=== PATIENT | male | born 1995 | race Caucasian/White ===

== ENCOUNTER 2017-09-27 08:47 | Inpatient (IN) ==
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
[2017-09-27] MEDS ORDERED: Morphine Inj 4 MG/ML Vial IV.PUSH PRN (10:08)
[2017-09-27] MEDS ORDERED: Docusate Sodium 100 MG Capsule PO SCH (10:15)
[2017-09-27] MEDS ORDERED: Pantoprazole Inj 40 MG Vial IV.PUSH SCH (11:00)
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
[2017-09-27] MEDS ORDERED: Glycopyrrolate Inj 1 MG/5 ML Syringe IV.PUSH ONE (12:00)
[2017-09-27] MEDS ORDERED: Neostigmine Inj 5 MG/5 ML Syringe IV.PUSH ONE (12:00)
[2017-09-27] MEDS ORDERED: Lidocaine PF 1% Inj 5 ML Syringe INFILTRATN ONE (12:00)
[2017-09-27] MEDS: Morphine Inj 4 MG/ML Vial IV.PUSH PRN ×2 (12:26→15:48)
[2017-09-27] MEDS ORDERED: Chlorhexidine Gluconate 2% 1 Pack (2 Cloths) TOPICAL SCH (13:30)
[2017-09-27] MEDS ORDERED: Metoprolol Tartrate 25 MG Tablet PO SCH (13:30)
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
[2017-09-27] MEDS ORDERED: Sodium Chlor 0.9% Inj 500 ML IV.SIG SCH (14:00)
[2017-09-27] MEDS ORDERED: HYDROmorphone PF Inj 2 MG/ML Vial ONE (20:12)
--- NOTE | 2017-09-27 20:53 | P.OP ---
- Preoperative Diagnosis (1) Left patella fracture (2) Bimalleolar fracture of left ankle - Postoperative Diagnosis (1) Bimalleolar fracture of left ankle (2) Left patella fracture Date of procedure: 09/27/17 Procedure: Left ankle open reduction and internal fixation of bimalleolar ankle fracture. Left knee open reduction and internal fixation of comminuted patella fracture. Anesthesia: GETA Surgeon: Sudhakar Vizcarra MD Tank [employer] Gauger: PETER Blake The surgical procedure was assisted by my Advanced Registered Nurse Practitioner. My LAPEL BASTER presence was necessary throughout this case for the manipulation and positioning of the surgical extremity. My LAPEL BASTER was assisting me throughout the duration of this procedure. The skill set of an Advance Registered Nurse Practitioner was medically necessary to complete this procedure. During the surgical case, the surgical technology instructor was working at the back table and the Advance Registered Nurse Practitioner was directly assisting me. Operation and Findings: Tourniquet time: 0 minutes at 250 mmHg of pressure Estimated blood loss: 75 cc The patient received intravenous vancomycin and Ancef. After the appropriate anesthesia was administered, the patient's leg was prepped and draped in the usual sterile fashion. We made a standard incision on the anterior aspect of the knee. We identified a nondisplaced comminuted patella fracture. We evacuated the hematoma. We verified anatomic alignment both on palpation of the articular surface and also on fluoroscopy. We then placed 2 wires from distal to proximal. We used these wires to place 2 individual 4.0 Synthes cannulated stainless steel partially-threaded screws. Both screws had very good purchase. We then placed 18-gauge wire through the base of the first screw which was then crossed and brought down to the bottom of the second screw. We threaded the wire through the second screw brining the wire to the proximal aspect of the knee. We then create a crisscross pattern. We twisted and tightened both the medial and lateral sides of the wire in usual fashion with excellent compression. We considered placing a medial to lateral screw in the proximal aspect of the patella as there was a vertical type of split in this area. However we felt that the use of the tension band did stabilize this region and therefore decided not to place further fixation so as not to interfere with the previous screws have been placed. We took final fluoroscopic images. Hemostasis was achieved and the knee was thoroughly irrigated. Skin was closed with 2-0 Vicryl followed by pb. We then turned our attention to the ankle using separate incisions. We made a standard incision over the lateral aspect of the ankle. We then dissected through the deep fascia down to the fracture site. The edges of the fracture were identified. The lateral malleolus fracture was anatomically reduced by placing pressure from the lateral side. The fracture was anatomically reduced with a reduction clamp, verified both visually and via fluoroscopy. We then applied a pre-contoured Synthes lateral malleolus plate over the fracture. We initially secured the plate using a non-locking screw in the oblong screw hole. This gave nice compression of the plate to the bone. We then secured the fracture with multiple distal and proximal locking screws. We made an incision on the medial aspect of the ankle and placed one central guidewires up the medial malleolus. The medial malleolus remained anatomic during this procedure. We measured the appropriate length for the screw. One Synthes 4.0 stainless steel partially threaded, long thread, cannulated screws were placed. The fracture remained in good position. We decided to use only one screw as this screw was in the central portion of the fracture and had good purchase. We took final fluoroscopic imaging of the ankle, including an AP, lateral, and mortise view. The fracture and the mortise were anatomic. We found no intra- articular penetration of the screws. The patient had full range of motion of the ankle with no crepitus. No instability was noted. We irrigated the incisions thoroughly. We then closed the deep fascia completely over the plate with 0 Vicryl. Skin was closed on both sides with 2-0 Vicryl followed by 3-0 nylon. The leg was dressed and a splint was applied. The postoperative plan is for nonweightbearing to the extremity also with application of a a canvas knee splint. We may be able to start early range of motion for the knee and the ankle depending on clinical course. We will place the patient on aspirin for DVT prophylaxis.
[2017-09-27] MEDS ORDERED: Post-op Orders (for Pharmacy) OTHER STA (20:55)
[2017-09-27] MEDS ORDERED: Bisacodyl 10 MG Supp RECTAL PRN (20:55)
[2017-09-27] MEDS ORDERED: Aluminum/Magnesium/Simethacone Susp 30 ML UDC PO PRN (20:55)
[2017-09-27] MEDS ORDERED: Zolpidem Tartrate 5 MG Tablet PO PRN (20:55)
[2017-09-27] MEDS ORDERED: fentaNYL Citrate Inj 100 MCG/2 ML Ampul ONE (21:42)
[2017-09-27] MEDS ORDERED: *morphine SULFATE 4 MG/ML PERIprocedure ONLY ONE ×2 (22:03→22:12)
--- NOTE | 2017-09-27 22:06 | XR ---
EXAM DATE: 09/27/2017 9:41 PM EDT AGE/SEX: 22 years / Male INDICATIONS: Open reduction. CLINICAL DATA: This is the patient's subsequent encounter. Patient reports that signs and symptoms h ave been present for 2 days and indicates a pain score of Nonresponsive. MEDICAL/SURGICAL HISTORY: None. None. COMPARISON: No prior exams available for comparison. FINDINGS: 2 intraoperative spot images of the knee. 2 vertically oriented screws across patellar fracture along with cerclage wires. CONCLUSION: Surgical hardware in the patella. Electronically signed by: Kulwant Garcia MD 09/27/2017 10:05 PM EDT
--- NOTE | 2017-09-27 22:06 | XR ---
EXAM DATE: 09/27/2017 9:42 PM EDT AGE/SEX: 22 years / Male INDICATIONS: Open reduction left ankle. CLINICAL DATA: This is the patient's subsequent encounter. Patient reports that signs and symptoms h ave been present for 2 days and indicates a pain score of Nonresponsive. MEDICAL/SURGICAL HISTORY: None. None. COMPARISON: [facility] [place] COMPLETE LEFT MIN 3V, 09/27/2017. . FINDINGS: 3 intraoperative spot images of the left ankle. Lateral internal fixation plate and multiple transfix ing screws in the distal fibula. Oblique screw through the medial malleolus. CONCLUSION: Surgical hardware in the distal tibia and fibula. Electronically signed by: Kulwant Garcia MD 09/27/2017 10:04 PM EDT
[2017-09-27] MEDS: Senna/Docusate Sodium 8.6/50 MG Tablet PO SCH (23:03)
[2017-09-27] MEDS: Multivitamin/Minerals Therapeutic Tablet PO SCH (23:04)
[2017-09-28] MEDS: Morphine Inj 4 MG/ML Vial IV.PUSH PRN ×3 (04:10→12:50)
[2017-09-28 07:02] LABS: Baso % (Auto) 0.2 % (0.0-2.0); Hematocrit 38.4 % (39.0-51.0); Lymph # (Auto) 1.5 th/mm3 (1.0-4.8); Lymph % (Auto) 12.7 % (9.0-44.0); Mean Corpuscular HGB Conc 33.8 % (32.0-36.0); Mean Corpuscular Hemoglobin 29.7 pg (27.0-34.0); Mean Corpuscular Volume 87.7 fL (80.0-100.0); Mean Platelet Volume 8.1 fL (7.0-11.0); Mono # (Auto) 1.4 th/mm3 (0.0-0.9); Mono % (Auto) 11.5 % (0.0-8.0); Neut # (Auto) 9.1 th/mm3 (1.8-7.7); Neut % (Auto) 75.6 % (16.0-70.0); Platelet Count 279 th/mm3 (150-450); Red Blood Count 4.38 mil/mm3 (4.50-5.90); Red Cell Distribution Width 14.4 % (11.6-17.2); White Blood Count 12.1 th/mm3 (4.0-11.0)
[2017-09-28 07:20] LABS: Anion Gap 5 meq/L (5-15); Blood Urea Nitrogen 9 mg/dL (7-18); Carbon Dioxide 27.6 meq/L (21.0-32.0); Chloride 106 meq/L (98-107); Glomerular Filtration Rate Greater Than 89 mL/min (>89); Glucose,Random 143 mg/dL (74-106); Potassium 4.2 meq/L (3.5-5.1); Sodium 139 meq/L (136-145)
[2017-09-28] MEDS: Multivitamin/Minerals Therapeutic Tablet PO SCH (08:57)
[2017-09-28] MEDS: Enoxaparin Inj 40 MG/0.4 ML Syringe SQ SCH (08:57)
[2017-09-28] MEDS: Senna/Docusate Sodium 8.6/50 MG Tablet PO SCH ×2 (08:57→22:19)
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
[2017-09-28] MEDS ORDERED: Ketorolac Inj 30 MG/ML (IVP) Vial IV.PUSH PRN (17:00)
[2017-09-29] MEDS: Ibuprofen 400 MG Tablet PO SCH ×2 (02:43→11:18)
[2017-09-29 03:47] LABS: Hematocrit 34.7 % (39.0-51.0); Hemoglobin 12.1 gm/dL (13.0-17.0)
[2017-09-29] MEDS: diazePAM 2 MG Tablet PO SCH ×3 (04:12→20:46)
[2017-09-29] MEDS: Multivitamin/Minerals Therapeutic Tablet PO SCH ×3 (04:16→20:47)
--- NOTE | 2017-09-29 07:58 | P.DCO ---
- Physical Therapy Order: Evaluate and treat, Improve ambulation - Home Health Nursing Order: Medical education, Signs/symptoms of disease process, Medication education-adverse effect, Nursing assessment with vital signs - Certification I have seen patient Jersey Edmondson on 09/29/17. My clinical findings support the need for the requested home health care services because: Limited mobility due to disease progression, Deconditioned with increased weakness, Limited ability to care for self, High risk of falls, Infection with risk of complications I certify that my clinical findings support that this patient is homebound because: Post-op weakness, Unsteady gait/balance, Unsafe to leave home unassisted, Non- ambulatory: confined to bed or chair, Unable to use public transportation
[2017-09-29] MEDS: Senna/Docusate Sodium 8.6/50 MG Tablet PO SCH ×2 (08:36→20:48)
[2017-09-29] MEDS: Enoxaparin Inj 40 MG/0.4 ML Syringe SQ SCH (08:36)
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
[2017-09-30] MEDS: Enoxaparin Inj 40 MG/0.4 ML Syringe SQ SCH (08:53)
[2017-09-30] MEDS: Senna/Docusate Sodium 8.6/50 MG Tablet PO SCH (08:53)
[2017-09-30] MEDS: Multivitamin/Minerals Therapeutic Tablet PO SCH (08:54)
[2017-09-30] MEDS: Ibuprofen 400 MG Tablet PO SCH (11:50)
[2017-09-30] MEDS: diazePAM 2 MG Tablet PO SCH (14:55)
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
== END 2017-09-30 16:27 | disposition home health service (06) ==
LOC: NEPE 08:47 → NEDA 09:34 → N06 11:05
PROVIDERS: ADMIT Surgery; ATTEND Surgery
PROC: ORIFPAT (2017-09-27 19:01)
PROC: ORIFANK (2017-09-27 19:01)